=== PATIENT | female | born 1990 | race African-American/Black ===

== ENCOUNTER 2019-12-13 09:45 | Emergency (ER) | payer OTHER ==
[~2019-12-13] VITALS: Ht 165.1 cm; Wt 108.9 kg
[2019-12-13 10:29] LABS: INFLUENZA A ANTIGEN Negative (Negative); INFLUENZA B ANTIGEN Negative (Negative)
[2019-12-13] MEDS ORDERED: PREDNISONE 20 M20 MG PO (10:40)
[2019-12-13] MEDS ORDERED: VENTOLIN HFA 1818 GM INH (10:40)
[2019-12-13] MEDS ORDERED: TESSALON PERLE100 MG PO (10:40)
[2019-12-13 10:59] VITALS: BP 121/78
== END 2019-12-13 11:00 | disposition home or self-care (01) ==
LOC: M.ERS 09:45
PROVIDERS: Nurse Practitioner Family
DX: J06.9 Acute upper respiratory infection, unspecified (principal); Z98.51 Tubal ligation status; Z98.890 Other specified postprocedural states